=== PATIENT | male | born 1955 | race Caucasian/White ===

== ENCOUNTER 2016-07-02 18:07 | Emergency (ER) | payer MEDICARE, OTHER ==
[~2016-07-02] VITALS: Ht 177.8 cm; Wt 118.0 kg
[2016-07-02 18:12] VITALS: Ht 177.8 cm; Wt 118.0 kg
--- OUTSIDE RECORDS SUMMARY | 2016-07-02 18:12 | XMS REPORT | Referral Summary ---
Author Author [facility] Organization [facility] Address Unknown Phone Unavailable Care Team Providers Care Outdoor Pursuits Instructor Name Role Phone Chandni Chappell Primary Care Physician [phone] Encounter VC Date(s): 04/05/16 - 04/05/16 [facility] [address] [place], [place] [address] Discharge Disposition: 01-Home or Self Care Attending Physician: Jarrod Barlow MD Admitting Physician: Jarrod Barlow MD Vital Signs No data available for this section Problem List Condition Effective Dates Status Health Status Informant Disease of the Active thyroid(Confirmed) H/O Active hypercholesterolemia (Confirmed) Migraine(Confirmed) Active Allergies, Adverse Reactions, Alerts Substance Reaction Severity Status HYDROcodone uNspecfied Active Medications acetaminophen 0 Refill(s) Start Date: 04/05/16 Status: Ordered CeleBREX 200 mg oral capsule 200 mg 1 caps, Oral, BID, # 60 caps, 0 Refill(s) Start Date: 04/05/16 Status: Ordered cyclobenzaprine 10 mg oral tablet 10 mg 1 tabs, Oral, TID, as needed for spasm, # 30 tabs, 0 Refill(s) Start Date: 04/05/16 Status: Ordered Cymbalta 30 mg oral delayed release capsule mg caps, Oral, BID, 0 Refill(s) Start Date: 04/05/16 Status: Ordered Fioricet Oral, q4hr, Migraine Headache, 0 Refill(s) Start Date: 04/05/16 Status: Ordered Fish Oil Oral, 0 Refill(s) Start Date: 04/05/16 Status: Ordered Flonase 50 mcg/inh nasal spray sprays, Nasal, Daily, 0 Refill(s) Start Date: 04/05/16 Status: Ordered levothyroxine 50 mcg (0.05 mg) oral tablet mcg tabs, Oral, Daily, 0 Refill(s) Start Date: 04/05/16 Status: Ordered loratadine 10 mg oral capsule 10 mg 1 caps, Oral, Daily, # 10 caps, 0 Refill(s) Start Date: 04/05/16 Status: Ordered Lyrica 100 mg oral capsule 100 mg 1 caps, Oral, BID, 0 Refill(s) Start Date: 04/05/16 Status: Ordered Metamucil Oral, 0 Refill(s) Start Date: 04/05/16 Status: Ordered multivitamin Daily, 0 Refill(s) Start Date: 04/05/16 Status: Ordered pantoprazole 40 mg oral delayed release tablet mg tabs, Oral, Daily, 0 Refill(s) Start Date: 04/05/16 Status: Ordered Patanol drops, Eye-Both, BID, 0 Refill(s) Start Date: 04/05/16 Status: Ordered Percocet 10/325 oral tablet tabs, Oral, q6hr, as needed for pain, 0 Refill(s) Start Date: 04/05/16 Status: Ordered pravastatin 20 mg oral tablet 20 mg 1 tabs, Oral, Daily, # 30 tabs, 0 Refill(s) Start Date: 04/05/16 Status: Ordered ranitidine 0 Refill(s) Start Date: 04/05/16 Status: Ordered Results No data available for this section Immunizations No data available for this section Procedures Procedure Date Related Diagnosis Body Site Cervical spine surgery Lumbar spine, Arthrodesis Prostate, green light laser Spinal cord stimulator Vasectomy Social History Social History Type Response Smoking Status Never smoker Assessment and Plan Extracted from: Title: Office Visit Note Author: Jarrod Barlow MD Date: 04/05/16 Assessment/Plan Carpal tunnel syndrome, left Patient has bilateral carpal tunnel syndrome by clinical examination and nerve conduction test. This is severe and nerve conduction tests. I don't see any signs of thenar atrophy muscle wasting. I recommended an endoscopic carpal tunnel release performed on the left side. On the right side I recommended an injection with Kenalog to be done at the same setting. The right side is less severe than the left. I explained to the patient that injection of the carpal tunnel on the right will be temporary and he will likely need a carpal tunnel release at some point. The endoscopic carpal tunnel release performed on the left side carries with it a risks of bleeding, infection, damage to nerves or tendons, poor wound healing, need for further surgery. I explained to the patient that this releasewill be done under regional anesthesia. We'll get the patient scheduled for the near future. Ordered: XR Wrist Complete Left
--- OUTSIDE RECORDS SUMMARY | 2016-07-02 18:12 | XMS REPORT | Continuity of Care Document ---
Author Author [facility] Organization [facility] Address Unknown Phone Unavailable Allergies Active Description Code Type Severity Reaction Onset Reported/Identified Relationship to Patient Clinical Status Yes LORATAB N/A N/A Yes LORTAB 04750 2 HICCUPS ITCHING 06/10/2011 Medications Medication Packaging Start Date Stop Date Route Dosage Sig OXYcodone/ACETAMINOPHEN 10-325 MG TABLET TAB 04/16/20152015 PO ONCE LACTATED RINGERS 1000 ML IV SOLN BAG 06/16/2015 06/16/2015 IV PRE-OP MIDAZOLAM 2MG/2ML INJ VL 06/16/2015 06/16/2015 IV PRE-OP fentaNYL 100 MCG/2ML INJ AMP 06/16/2015 06/16/2015 IV PRE-OP ceFAZolin 1GM VIAL VL 06/16/2015 06/16/2015 IV PRE-OP PNEUMOCOCCAL VACCINE 25 MCG/0.5ML VIAL VL 06/16/20152016 IM ASDIR *PRAVASTATIN 20MG TABLET TAB 06/16/2015 06/15/2016 PO QD&2200 * Ready to Reconcile EA 06/16/2015 06/16/2015 PO ASDIR fentaNYL 250 MCG/5ML INJ AMP 06/16/2015 06/16/2015 IV ONCE SODIUM CHLORIDE PF 0.9% 10ML INJ VL 06/16/2015 06/16/2015 IVP ONCE LACTATED RINGERS 1000 ML IV SOLN BAG 06/16/2015 06/16/2015 IV ONCE THROMBIN 5000 UNIT VIAL VL 06/16/2015 06/16/2015 TOP ONCE SODIUM CHLORIDE 0.9% 1000ML IRRIG SOLN EA 06/16/20152015 IRR ONCE ceFAZolin 1GM VIAL VL 06/16/2015 06/16/2015 IVP ONCE SODIUM CHLORIDE 0.9% 10ML FLUSH SYRINGE SYR 06/16/20152016 IVP BID&0900,2100 DOCUSATE SODIUM 100MG CAPSULE CAP 06/16/2015 06/15/2016 PO BID& 0900,2100 LIDOCAINE 2% SYRINGE [100MG/5ML] SYR 06/16/2015 06/16/2015 IVP ONCE PROPOFOL 200MG/20ML INJ VL 06/16/2015 06/16/2015 IVP ONCE ONDANSETRON 4MG/2ML INJ VL 06/16/2015 06/16/2015 IVP ONCE ROCURONIUM 50MG/5ML INJ VL 06/16/2015 06/16/2015 IVP ONCE DEXAMETHASONE 10MG/1ML VIAL VL 06/16/2015 06/16/2015 IVP ONCE SODIUM CHLORIDE 0.9% 10ML FLUSH SYRINGE SYR 06/16/20152016 IVP PRN SODIUM CHLORIDE 0.9% 5ML FLUSH SYRINGE SYR 06/16/20152016 IVP PRN MAGNESIUM HYDROXIDE 2400MG/30ML SUSP EA 06/16/2015 06/15/2016 PO PRN MORPHINE 2 MG/1ML SYRINGE ML 06/16/2015 06/15/2016 IVP [id number] MORPHINE 4MG/1ML SYRINGE ML 06/16/2015 06/15/2016 IVP [id number] OXYcodone/ACETAMINOPHEN 7.5-325 MG TABLET TAB 06/16/20152016 PO [id number] BISACODYL 10MG SUPPOS. SUP 06/16/2015 06/15/2016 ME* PRN ONDANSETRON 4MG TABLET TAB 06/16/2015 06/15/2016 PO [id number] METOCLOPRAMIDE 10MG TABLET TAB 06/16/2015 06/15/2016 PO [id number] BISACODYL 5MG TABLET TAB 06/16/2015 06/15/2016 PO PRN SODIUM CHLORIDE 0.9% 1000ML IV SOLN BAG 06/16/2015 06/16/2015 LVP 70ML/HR ONDANSETRON 4MG/2ML INJ VL 06/16/2015 06/15/2016 IVP [id number] METOCLOPRAMIDE 10MG/2ML INJ VL 06/16/2015 06/15/2016 IVP [id number] CYCLOBENZAPRINE 10 MG TABLET TAB 06/16/2015 06/15/2016 PO O5PDYLE *OLOPATADINE OPHTHALMIC DROPS 06/16/2015 06/15/2016 OU PRN *PREGABALIN 100 MG CAPSULE CAP 06/16/2015 06/15/2016 PO BID& 0900,2100 *DULoxetine 30MG CAPSULE CAP 06/16/2015 06/15/2016 PO HS&2200 *[id number] 50-325-40 MG TABLET TAB 06/16/2015 PO Q4HPRN *RANITIDINE 150MG TABLET TAB 06/16/2015 06/15/2016 PO QD&0900 *PRAVASTATIN 20MG TABLET TAB 06/16/2015 06/15/2016 PO QD&2200 *PANTOPRAZOLE 40MG TABLET TAB 06/16/2015 06/15/2016 PO QD&0900 *LORATADINE 10MG TABLET TAB 06/16/2015 06/15/2016 PO QDPRN *LEVOTHYROXINE 50MCG TABLET TAB 06/16/2015 06/15/2016 PO QD& 0900 *POLYVINYL ALCOHOL 1.4 % OPHTHALMIC DROPS EA 06/16/20152016 OP PRN *FLUTICASONE NASAL INHALER [16GM] MDI 06/16/2015 06/15/2016 LISA PRN hydroMORPHONE 2MG/1ML INJ ML 06/16/2015 06/16/2015 IV POST-OP ceFAZolin 1GM VIAL VL 06/16/2015 06/17/2015 IVP Q8H&1700,0100, 0900 ceFAZolin 1GM VIAL VL 06/16/2015 06/16/2015 IVP Q8H&0000,0800, 1600 POLYETHYLENE GLYCOL 17GM PKT PKT 06/17/2015 06/16/2016 PO QD& 0900 *OMEGA-3 FATTY ACIDS 1000MG CAPSULE CAP 07/09/2015 07/08/2016 PO BID&0900,2100 *PREGABALIN 100 MG CAPSULE CAP 07/09/2015 06/16/2015 PO BID& 0900,2100 *CELECOXIB 200MG CAPSULE CAP 07/09/2015 07/08/2016 PO BID&0900, 2100 *MULTIVITAMIN TABLET TAB 07/09/2015 07/08/2016 PO QD&0900 *RANITIDINE 150MG TABLET TAB 07/09/2015 06/16/2015 PO QD&0900 *PRAVASTATIN 20MG TABLET TAB 07/09/2015 06/16/2015 PO QD&0900 *PANTOPRAZOLE 40MG TABLET TAB 07/09/2015 06/16/2015 PO QD&0900 *LORATADINE 10MG TABLET TAB 07/09/2015 06/16/2015 PO QD&0900 *LEVOTHYROXINE 50MCG TABLET TAB 07/09/2015 06/16/2015 PO QD& 0900 *OXYcodone/ACETAMINOPHEN 5-325 MG TABLET TAB 07/09/20152016 PO Q4-6HPRNP *DULoxetine 30MG CAPSULE CAP 07/09/2015 06/16/2015 PO HS&2200 *FLUTICASONE NASAL INHALER [16GM] MDI 07/09/2015 06/16/2015 LISA PRN *[id number] 50-325-40 MG TABLET TAB 07/09/2015 PO Q4HPRN *LORATADINE 10MG TABLET TAB 07/09/2015 06/16/2015 PO QDPRN *OTC/HERBAL SUPPLEMENTS EA 07/09/2015 07/08/2016 PO ASDIR * DONT RECONCILE--CHANGE PENDING EA 07/09/2015 06/16/2015 PO PRN *DOCUSATE SODIUM 100MG CAPSULE CAP 07/09/2015 07/08/2016 PO PRN *CYCLOBENZAPRINE 10 MG TABLET TAB 07/09/2015 07/08/2016 PO Q8HPRN *ACETAMINOPHEN 500MG TABLET TAB 07/09/2015 07/08/2016 PO HS& 2200 *OLOPATADINE OPHTHALMIC DROPS 07/09/2015 06/16/2015 OU PRN *PRAVASTATIN 20MG TABLET TAB 07/16/2015 06/16/2015 PO QD&2200 *POLYVINYL ALCOHOL 1.4 % OPHTHALMIC DROPS EA 07/16/20152015 OP PRN Problems Date Dx Coded Attending Type Code Diagnosis Diagnosed By 06/17/2011 DF 244.9 HYPOTHYROIDISM NOS 06/17/2011 DF 272.0 PURE HYPERCHOLESTEROLEM 06/17/2011 DF 285.9 ANEMIA NOS 06/17/2011 DF 327.23 OBSTRUCTIVE SLEEP APNEA 06/17/2011 DF 349.31 ACCID PUNC/OP LAC DURA 06/17/2011 DF 401.9 HYPERTENSION NOS 06/17/2011 DF 530.81 ESOPHAGEAL REFLUX 06/17/2011 DF 721.3 LUMBOSACRAL SPONDYLOSIS 06/17/2011 DF 722.10 LUMBAR DISC DISPLACEMENT 06/17/2011 DF 722.52 LUMB/LUMBOSAC DISC DEGEN 06/17/2011 DF V85.35 BMI 35.0-35.9,ADULT 04/16/2015 ASIF ARANDA DF M54.2 Cervicalgia 04/16/2015 ASIF ARANDA DF M54.5 Low back pain 04/16/2015 ASIF ARANDA DF M54.6 Pain in thoracic spine 06/17/2015 ASIF ARANDA DF E03.9 Hypothyroidism, unspecified 06/17/2015 ASIF ARANDA DF E78.5 Hyperlipidemia, unspecified 06/17/2015 ASIF ARANDA DF G43.909 Migraine, unspecified, not intractable, 06/17/2015 ASIF ARANDA DF G47.33 Obstructive sleep apnea (adult) (pediatr 06/17/2015 ASIF ARANDA DF J30.2 Other seasonal allergic rhinitis 06/17/2015 ASIF ARANDA DF K21.9 Gastro-esophageal reflux disease without 06/17/2015 ASIF ARANDA DF M25.78 Osteophyte, vertebrae 06/17/2015 ASIF ARANDA DF M47.892 Other spondylosis, cervical region 06/17/2015 ASIF ARANDA DF M48.02 Spinal stenosis, cervical region 06/17/2015 ASIF ARANDA DF M50.12 Cervical disc disorder with radiculopath 06/17/2015 ASIF ARANDA DF M50.22 Other cervical disc displacement, mid-ce 08/01/2015 ASIF ARANDA DF M48.02 Spinal stenosis, cervical region 08/01/2015 ASIF ARANDA DF Z98.1 Arthrodesis status Procedures Code Description Performed By Performed On SPINAL STRUCT REPAIR NEC ASIF ARANDA 06/14/2011 77.79 EXCISE BONE FOR GFT NEC ASIF ARANDA 06/14/2011 81.07 LMB/LMBSAC FUS POST/POST ASIF ARANDA 06/14/2011 81.62 FUS/REFUS 2-3 VERTEBRAE ASIF ARANDA 06/14/2011 [id number] Computerized Tomography (CT Scan) of Spi 04/16/2015 [id number] Excision of Cervical Vertebral Joint, Op ASIF ARANDA 06/16/2015 [id number] Excision of Cervical Vertebral Disc, Ope ASIF ARANDA 06/16/2015 [id number] Fusion of Cervical Vertebral Joint with YULISA ARANDAMOND 06/16/2015 Results Encounters ACCT No. Visit Date/Time Discharge Status Pt. Type Provider Facility Loc./Unit Complaint [id number] 08/01/2015 12:14:00 08/01/2015 12: 14:[address] [facility] RADS [id number] 06/16/2015 07:05:00 06/17/2015 13: 25:00 DIS 01 [facility] INPT NO KNOWN INJURY,stenosis. [id number] 04/16/2015 09:19:00 04/16/2015 15: 21:00 DIS 26 [facility] INPT [id number] 06/14/2011 08:30:00 Document Registration
--- OUTSIDE RECORDS SUMMARY | 2016-07-02 18:12 | XMS REPORT | Continuity of Care Document ---
Author Author [facility] Organization [facility] Address Unknown Phone Unavailable Care Team Providers Care Artist Scientific Name Role Phone Benigno Chappell Primary Care Physician [phone] Source Comments Some departments are not documenting in the electronic medical record. If you do not see the information that you expected, contact Release of Information in the Health Information Management department at [phone] for further assistance in locating additional records.[facility] Active Allergies and Adverse Reactions Allergen Noted Date Severity Reactions Comments Hydrocodone-Acetaminophen 04/16/2008 ITCHING, SEE COMMENTS "causes hiccups" Current Medications Prescription Sig. Disp. Refills Start End Date Status Date ASPIRIN 81 mg Tab Take 1 Tab by mouth Active Daily. LORATADINE 10 mg tablet Take 1 Tab by mouth Active Daily. (CLARITIN) FLUTICASONE 50 Insert 2 Sprays into nose Active mcg/Actuation nasal spray as directed Twice Daily. (FLONASE) OMEPRAZOLE DR,+, 20 mg Take 1 Cap by mouth Twice Active capsule Daily. (PRILOSEC) LOVASTATIN,+, 40 mg Take 1 Tab by mouth At Active tablet Bedtime Daily. (MEVACOR) VITAMINS, MULTIPLE Cap Take 1 Cap by mouth Active Daily. TRAMADOL,+, 50 mg tablet Take 2 Tabs by mouth Active Three Times Daily. (ULTRAM) DOCUSATE 100 mg capsule Take 1 Cap by mouth At Active Bedtime Daily. (hold for loose stools). (COLACE) LUBIPROSTONE 24 mcg Cap Take 1 Cap by mouth Active Daily. (Amitiza) TRAZODONE 50 mg tablet Take 1 Tab by mouth At Active Bedtime Daily. (DESYREL) DULOXETINE DR 30 mg Take 1 Cap by mouth Active capsule Daily. (Cymbalta). CITRUCEL Powd Take 1 Tbsp by mouth Active Twice Daily. docusate (COLACE) 100 mg Take 1 Cap by mouth Twice 60 0 04/20/19 Active capsule Daily as needed for 09 Constipation. oxycodone/acetaminophen Take 1-2 Tabs by mouth 100 0 04/20/19 Active (PERCOCET) 5/325 mg Every 3-4 Hours as needed 09 tablet for Pain. 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
--- NOTE | 2016-07-02 18:18 | NUR ---
DR DR CASTELLANO AT BEDSIDE.
--- NOTE | 2016-07-02 18:24 | NUR ---
XRAY PORTABLE XRAY AT BEDSIDE.
--- NOTE | 2016-07-02 18:24 | ERPDOC ---
Departure Disposition Decision Date: July 02, 2016 Disposition Decision Time: 19:14 Disposition: 01 DISCHARGED HOME, SELF-CARE Impression Impression Impression: Primary Impression: Finger laceration Encounter type: initial encounter Qualified Codes: S61.219A - Laceration without foreign body of unspecified finger without damage to nail, initial encounter Additional Impression: Finger avulsion Encounter type: initial encounter Qualified Codes: S61.209A - Unspecified open wound of unspecified finger without damage to nail, initial encounter Severity: Moderate Condition: Improved Seen By: Physician only Referrals: MARIANA MACKEY MD (Family) MARIELA LAZO MD Patient Instructions: Finger Laceration (ED) Problems/Meds/Labs Reviewed?: Yes Medications reviewed and manag: Yes Additional Instructions: Keep dressing in place, clean, and dry for 24 hours, thereafter wash wound daily with mild soap and water, coat with a light coat of Vaseline and dry gauze dressing daily until healed. See Dr. Lazo in his office Tuesday at 10 AM Follow up care ordered?: Yes Mental Status: Alert HPI General Chief Complaint: Laceration Stated Complaint: FINGER LACERATION Time Seen by Provider: 18:13 Source: patient, family Exam Limitations: no limitations HPI Hand/Forearm Initial Comments Pt cut the tip of his right index finger longitudinally with a table saw one hour ago. Treated at home with triple antibiotic cream and wrapped. Occurred At: home Onset: Rapid Duration: 1 hr Location: right: 2nd finger 1 - Longitudinal laceration through the tip of the finger Method of Injury: incised Associated Symptoms: pain with extension, pain with flexion, DENIES: bruising, pain with grasp, pallor, red streaks, redness, swelling, weakness Allergies: Coded Allergies: acetaminophen (Verified Adverse Reaction, Unknown, ITCHY, HICCUPS, 07/02/16) hydrocodone (Verified Adverse Reaction, Unknown, ITCHY, HICCUPS, 07/02/16) oxycodone (Verified Adverse Reaction, Unknown, ITCHY, HICCUPS, 07/02/16) Past History Patient Medical History Problem List Updates: y Past Medical History Metabolic: hypercholesterolemia, hypothyroidism ENMT: allergies GI: GERD Neurological: migraines Musculoskeletal: back pain Social History Tobacco Usage: none Alcohol Usage: none Drug Usage: none Record Review Pertinent history updated: Yes Review of Systems Constitutional Constitutional: DENIES: appetite decrease, appetite increase, chills, dizziness , fever, weakness ENMT Ears: DENIES: pain Hearing: DENIES: hearing loss, tinnitus Balance: DENIES: vertigo Mouth/Throat: DENIES: change in swallowing, change in voice, hoarsness, painful swallowing, sore throat Cardiovascular Cardiac: DENIES: chest pain, dyspnea on exertion Rhythm/Rate: DENIES: irregular beat, palpitations, tachycardia Vascular: DENIES: pedal edema Pulmonary Respiratory: DENIES: cough, dyspnea, pleuritic chest pain GI Upper Abdomen: DENIES: dysphagia, heartburn/indigestion, nausea, pain, vomiting Lower Abdomen: DENIES: blood in stool, constipation, diarrhea, pain General: DENIES: burning, dysuria, frequency, pain, urgency Musculoskeletal General: DENIES: cramps, joint pain, joint swelling, pain, weakness Integumentary Skin: DENIES: rash, sores Neurological General: DENIES: headache, numbness, tingling, vertigo, weakness Psychiatric Psychiatric: DENIES: anxiety, depression, nervousness Exam General General Nourishment: well nourished, well developed, appears stated age, no acute distress General Body Habitus: well groomed Vital Signs: RN Vital Signs have been reviewed: Yes Fastrak Hand/Forearm Comments Longitudinal linear finger laceration with tissue avulsion as diagrammed. Through and through with moderate loss of central/medial tissue of the second digit, distal phalanx. Moderate bleeding, controlled with pressure dressing Patient is neurovascularly intact with good capillary refill, good sensation throughout the finger. Neurologic RN Documented GCS Eye Opening: Verbal: Motor: Total: Procedures Procedures Performed Procedures Performed: Laceration Repair Laceration/Wound Repair Wound/Laceration Repair : Wound Location: upper extremity Wound Length (cm): 4 Depth, Shape: subcutaneous, muscle, tissue avulsed Explored: contaminated Irrigated: saline Prep: hibiclens Anesthesia: 0.5% Bupivicaine Volume Anesthetic (ccs): 3 Type of Block: digital Wound Debrided: minimal Wound Revision?: No Repaired With: Sutures Suture Size: 4:0 Suture Type: prolene Number of Sutures: 7 Progress Results/Orders Orders Procedure Category Date Status Time Tetanus,Diphth,A PHA 07/02/16 Complete Pertus (Tdap) (Adacel) 18:30 Bupivacaine 0.5% PHA 07/02/16 Complete (Marcaine 0.5%) 18:30 Fingers Right 2 View RAD 07/02/16 Taken MIN Medications Current ED Medications Diphtheria/ Tetanus/Acell Pertussis (Adacel) 0.5 ml O ONCE IM ; Start 07/02/16 at 18:30; Stop 07/02/16 at 18:31; Status DC Bupivacaine HCl (Marcaine 0.5%) 150 mg O ONCE INFIL Last administered on t 18:20; Start 07/02/16 at 18:30; Stop 07/02/16 at 18:31; Status DC Progress Progress X-ray the fingertip shows partial avulsion of the medial aspect of the distal phalanx, consistent with the avulsion/forefinger laceration Discussed with Dr. Lazo - we will go ahead and aggressively clean and debride the area, and closed primarily using Prolene sutures tonight. Dr. Lazo will see the patient in follow up Tuesday at 10 AM in the clinic. Patient is currently on Cipro and Keflex for full course, status post state biopsy yesterday. CHRIS CASTELLANO MD July 02, 2016 18:24
--- OUTSIDE RECORDS SUMMARY | 2016-07-02 18:26 | XMS REPORT | Continuity of Care Document ---
Author Author [facility] Organization [facility] Address Unknown Phone Unavailable Care Team Providers Care Engraver Machine Name Role Phone Benigno Chappell Primary Care Physician [phone] Source Comments Some departments are not documenting in the electronic medical record. 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
--- OUTSIDE RECORDS SUMMARY | 2016-07-02 18:27 | XMS REPORT | Continuity of Care Document ---
Author Author [facility] Organization [facility] Address Unknown Phone Unavailable Allergies Active Description Code Type Severity Reaction Onset Reported/Identified Relationship to Patient Clinical Status Yes LORATAB N/A N/A Yes LORTAB 87420 2 HICCUPS ITCHING 06/10/2011 Medications Medication Packaging [...] 2 MG/1ML SYRINGE ML 06/16/2015 06/15/2016 IVP [id number] MORPHINE 4MG/1ML SYRINGE ML 06/16/2015 06/15/2016 IVP [id number] OXYcodone/ACETAMINOPHEN 7.5-325 MG TABLET TAB 06/16/20152016 PO Q4XWNGC BISACODYL 10MG SUPPOS. SUP 06/16/2015 06/15/2016 NM* PRN ONDANSETRON 4MG TABLET TAB 06/16/2015 06/15/2016 PO T1ANKVAM METOCLOPRAMIDE 10MG TABLET TAB 06/16/2015 06/15/2016 PO [id number] BISACODYL 5MG TABLET TAB 06/16/2015 06/15/2016 PO PRN SODIUM CHLORIDE 0.9% 1000ML IV SOLN BAG 06/16/2015 06/16/2015 LVP 70ML/HR ONDANSETRON 4MG/2ML INJ VL 06/16/2015 06/15/2016 IVP [id number] METOCLOPRAMIDE 10MG/2ML INJ VL 06/16/2015 06/15/2016 IVP [id number] CYCLOBENZAPRINE 10 MG TABLET TAB 06/16/2015 06/15/2016 PO H0MUAHY *OLOPATADINE OPHTHALMIC DROPS 06/16/2015 06/15/2016 OU PRN *PREGABALIN 100 MG CAPSULE CAP 06/16/2015 06/15/2016 PO BID& 0900,2100 *DULoxetine 30MG CAPSULE CAP 06/16/2015 06/15/2016 PO HS&2200 *[id number] 50-325-40 MG TABLET TAB 06/16/2015 PO Q4HPRN [...] INHALER [16GM] MDI 07/09/2015 06/16/2015 LISA PRN *[id number] 50-325-40 MG TABLET TAB 07/09/2015 PO Q4HPRN [...] DF M48.02 Spinal stenosis, cervical region 06/17/2015 AISF ARANDA DF M50.12 Cervical disc disorder with [...] 81.62 FUS/REFUS 2-3 VERTEBRAE ASIF ARANDA 06/14/2011 [id number] Computerized Tomography (CT Scan) of Spi 04/16/2015 [id number] Excision of Cervical Vertebral Joint, Op ASIF ARANDA 06/16/2015 [id number] Excision of Cervical Vertebral Disc, Ope ASIF ARANDA 06/16/2015 [id number] Fusion of Cervical Vertebral Joint with YULISA ARANDAMOND 06/16/2015 Results Encounters ACCT No. Visit Date/Time Discharge Status Pt. Type Provider Facility Loc./Unit Complaint [id number] 08/01/2015 12:14:00 08/01/2015 12: 14:00 DIS Outpatient [facility] RADS [id number] 06/16/2015 07:05:00 06/17/2015 13: 25:00 DIS 01 [facility] INPT NO KNOWN INJURY,stenosis. [id number] 04/16/2015 09:19:00 04/16/2015 15: 21:00 DIS 26 [facility] INPT [id number] 06/14/2011 08:30:00 Document Registration
[2016-07-02] MEDS ORDERED: TETANUS,DIPHTH,a PERTUS (Tdap) 0.5 ML VIAL IM ONE (18:30)
[2016-07-02] MEDS ORDERED: BUPIVACAINE 0.5% (5mg/ml) 30ml INJ SDV INFIL ONE (18:30)
--- NOTE | 2016-07-02 18:33 | NUR ---
REPORT GIVEN TO TYRESE MCGINNIS. CARE ASSUMED.
[2016-07-02] MEDS ORDERED: PANT40TA27 PO (18:45)
[2016-07-02] MEDS ORDERED: MULT-933 PO (18:45)
[2016-07-02] MEDS ORDERED: CELE200C PO (18:45)
[2016-07-02] MEDS ORDERED: LEVO50TA11 PO (18:45)
--- NOTE | 2016-07-02 18:54 | NUR ---
PROVIDER DR. CASTELLANO AT BEDSIDE FOR SUTURE.
[2016-07-02] MEDS ORDERED: PSYL660P17 PO (19:21)
[2016-07-02] MEDS ORDERED: ACET-2723 PO (19:21)
[2016-07-02] MEDS ORDERED: OMEG1CAP52 PO (19:21)
[2016-07-02] MEDS ORDERED: FLUT9.9S EA NOSTRIL (19:21)
[2016-07-02] MEDS ORDERED: [UNRECOGNIZED DRUG - CODE] (19:21)
[2016-07-02] MEDS ORDERED: RANI150T7 PO (19:21)
[2016-07-02] MEDS ORDERED: DULO30CA2 PO (19:21)
[2016-07-02] MEDS ORDERED: OLOP5DRO BOTH EYES (19:21)
[2016-07-02] MEDS ORDERED: PREG100C PO (19:21)
[2016-07-02] MEDS ORDERED: METH2TAB (19:21)
[2016-07-02] MEDS ORDERED: PRAV20TA4 PO (19:21)
[2016-07-02] MEDS ORDERED: LORA10TA62 PO (19:21)
[2016-07-02] MEDS ORDERED: CYCL-375 PO (19:21)
[2016-07-02] MEDS ORDERED: BUTA1CAP53 PO (19:21)
[2016-07-02] MEDS ORDERED: HYDROCODONE/APAP 5/325 (PrePack) SENT HOME ONE (19:30)
[2016-07-02] MEDS ORDERED: NEOMYCIN/POLYM/BACITR OINT PACKET TOP ONE (19:30)
[2016-07-02 19:36] VITALS: BP 135/85; PULSE 78; RESP 16; TEMP 98.6; O2SAT 97
--- NOTE | 2016-07-02 19:36 | NUR ---
DISCHARGE WRITTEN INSTRUCTIONS WITH SHELLY PREPACK REVIEWED AND SENT WITH PT. PT VERBALIZES UNDERSTANDING OF DI AND MEDICATION, DENIES QUESTIONS. DENIES PAIN ON DISMISSAL. PT AMBULATES OUT OF ER WITH STEADY GAIT ACCOMP BY SPOUSE AT THIS TIME.
--- NOTE | 2016-07-04 09:45 | DI ---
Indication: ITS.REASON: longitudinal finger tip saw injury PROCEDURE: FINGERS RIGHT 2 VIEW MIN: Encounter: Initial Comparison: None Findings: Comminuted open fracture of the index finger distal phalanx predominantly involving the left. No additional acute fracture or dislocation seen. Fracture does not extend into the joint space. Impression: Open posttraumatic fracture of the index finger distal phalanx. .
== END 2016-07-02 19:36 | disposition home or self-care (01) ==
LOC: ED 18:07
DX: S61.210A Laceration without foreign body of right index finger without damage to nail, initial encounter (principal); W29.8XXA Contact with other powered hand tools and household machinery, initial encounter; Y93.89 Activity, other specified; Y92.009 Unspecified place in unspecified non-institutional (private) residence as the place of occurrence of the external cause; Y99.8 Other external cause status
CPT/HCPCS: 12002; 73140; 90471; 90715; 99283; A9270

== ENCOUNTER 2016-07-17 15:58 | Observation (INO) | payer MEDICARE, OTHER ==
[~2016-07-17] VITALS: Ht 175.3 cm; Wt 118.0 kg
[~2016-07-17 15:58] MED LIST: ACET-2723 PO; BUTA1CAP53 PO; CELE200C PO; CYCL-375 PO; DULO30CA2 PO; FLUT9.9S EA NOSTRIL; LEVO50TA11 PO; LORA10TA62 PO; METH2TAB; MULT-933 PO; OLOP5DRO BOTH EYES; OMEG1CAP52 PO; PANT40TA27 PO; PRAV20TA4 PO; PREG100C PO; PSYL660P17 PO; RANI150T7 PO; [UNRECOGNIZED DRUG - CODE] PO
--- OUTSIDE RECORDS SUMMARY | 2016-07-17 16:03 | XMS REPORT | Continuity of Care Document ---
Author Author [facility] Organization [facility] Address Unknown Phone Unavailable Care Team Providers Care Patient Ombudsperson Name Role Phone Benigno Chappell Primary Care Physician [phone] Source Comments Some departments are not documenting in the electronic medical record. If you do not see the information that you expected, contact Release of Information in the Health Information Management department at [phone] for further assistance in locating additional records.[facility] Active Allergies and Adverse Reactions [...] Taken Blood Pressure 119/80 04/20/2008 10:30 AM TELEVISION NEWS REPORTER Pulse 110 04/20/2008 10:30 AM TELEVISION NEWS REPORTER Temperature 36.3 C (97.3 F) 04/20/2008 10:30 AM TELEVISION NEWS REPORTER Respiratory Rate - - Height - - Weight 100 kg (220 lb 7.4 oz) 04/17/2008 1:44 PM TELEVISION NEWS REPORTER Body Mass Index - - Oxygen Saturation 100% 04/20/2008 10:30 AM TELEVISION NEWS REPORTER Plan of Care Health Maintenance Due Date Last Done Comments Hepatitis C Screening 1955 Physical (Comprehensive) 1960 Exam Pertussis Vaccine 1964 Tetanus Vaccine 1970 Colorectal Cancer 07/16/2003 Screening Shingles Vaccine 2013 Influenza Vaccine 10/29/2016 Results from Last 3 Months Not on file
--- OUTSIDE RECORDS SUMMARY | 2016-07-17 16:04 | XMS REPORT | Continuity of Care Document ---
Author Author [facility] Organization [facility] Address Unknown Phone Unavailable Support Name Relationship Address Phone CHRIS CASTELLANO MD Caregiver [address] [address] Unavailable MARIANA MACKEY MD Caregiver [address] [place] [address] Unavailable BLAKE ANAND Next Of Kin [address] [place] [address] Insurance Providers Guarantor Harjinder Anand Address [address] [place] [address] Email [email or web address] Payer [place] Policy Number [id number] Subscriber's Name Harjinder Anand Relationship 18 Self Group Number [employer] [facility] Payer Medicare Policy Number [id number] Subscriber's Name Harjinder Anand Relationship 18 Self Advance Directives Directive Response Recorded Date/Time Advanced Directives Type None 07/02/16 6:12pm Chief Complaint and Reason for Visit Chief Complaint Laceration Reason for Visit [id number] Problems Active Problems Medical Problem Onset Date Status Finger avulsion Unknown Acute Finger laceration Unknown Acute Medications Current Home Medications Medication Dose Units Route Directions Days Qty Instructions Start Date Acetaminophen (Tylenol Extra Strength) 500 Mg Tablet 2 Tab Oral Three Times A Day as needed for Pain/Fever 07/02/16 Butalb/Acetaminophen/Caffeine (Fioricet 50-300-40 Mg Capsule) 1 Each Capsule 1 Tab Oral As Needed 07/02/16 Celecoxib (Celebrex) 200 Mg Capsule 1 Cap Oral Daily 07/02/16 Cyclobenzaprine Hcl 10 Mg Tablet 1 Tab Oral Three Times A Day as needed for Prn Orders 07/02/16 Duloxetine Hcl (Cymbalta) 30 Mg Capsule 1 Cap Oral Daily 07/02/16 Fluticasone Propionate (Flonase Allergy Relief 50 Mcg/Actuation Nasal) 9.9 Ml [place].susp 2 [place] Each Nostril As Needed 07/02/16 Glucosam/Msm/Chondroit/Vit D3 (Sv Glucosamine Chondroitin Tab) 1 Each Tablet 1 07/02/16 Levothyroxine Sodium 50 Mcg Tablet 50 Mcg Oral Before Breakfast Once daily before breakfast. 07/02/16 Loratadine (Claritin) 10 Mg Tablet 1 Tab Oral Daily 07/02/16 Methylprednisolone (Medrol) 2 Mg Tablet 07/02/16 Multivitamin (Multi-Day Vitamins) 1 Each Tablet 1 Tab Oral Daily 30 Tablet 07/02/16 Olopatadine Hcl (Patanol) 50 Drop/5 Ml Drops 2 Drop Both Eyes As Needed 07/02/16 [place]-3S/Dha/Epa/Fish Oil (Fish Oil Ec 1,200 Mg Softgel) 1 Each Capsule.dr 1 Tab Oral Twice A Day 07/02/16 Pantoprazole Sodium 40 Mg Tablet.dr 40 Mg Oral Before Breakfast Take 1 tablet, by mouth, daily before breakfast. 07/02/16 Pravastatin Sodium 20 Mg Tablet 20 Mg Oral Bedtime Take 1 tablet, by mouth, daily at bedtime. 07/02/16 Pregabalin (Lyrica) 100 Mg Capsule 100 Mg Oral Bedtime 07/02/16 Psyllium Husk (Metamucil) 660 Gm Powder 660 Gm Oral Twice A Day 07/02/16 Ranitidine Hcl 150 Mg Tablet 150 Mg Oral Bedtime Take 1 tablet, by mouth, 1 time a day (at BEDTIME). 07/02/16 Social History Social History Problem Response Recorded Date/Time Onset Date Status Chewing Tobacco Status No 07/02/2016 6:27pm Not Applicable Not Applicable Hx Substance Use No 07/02/2016 6:27pm Not Applicable Not Applicable Hx Alcohol Use No 07/02/2016 6:27pm Not Applicable Not Applicable Tobacco Usage none 07/02/2016 6:32pm Not Applicable Not Applicable Query Response Start Date Stop Date Smoking Status Former smoker Hospital Discharge Instructions No hospital discharge instructions. Plan of Care Discharge Date 07/02/16 7:36pm Disposition 01 DISCHARGED HOME, SELF-CARE Condition at Discharge Improved Instructions/Education Provided Finger Laceration (ED) Prescriptions See Medication Section Referrals MARIANA MACKEY MD Address: [address] [place] [address] [place] [phone] Note: MARIELA LAZO MD Address: [address] [phone] Additional Instructions/Education Keep dressing in place, clean, and dry for 24 hours, thereafter wash wound daily with mild soap and water, coat with a light coat of Vaseline and dry gauze dressing daily until healed. See Dr. Lazo in his office Tuesday at 10 AM Care Plan and Goals Physician Care Plan Problem: Finger laceration/avulsion Goal: Follow up with primary care provider Instructions: Take medications and follow care plan as discussed/written Keep dressing in place, clean, and dry for 24 hours, thereafter wash wound daily with mild soap and water, coat with a light coat of Vaseline and dry gauze dressing daily until healed. See Dr. Lazo in his office Tuesday at 10 AM Functional Status No functional status results. Allergies, Adverse Reactions, Alerts Allergen Type Severity Reaction Status Last Updated Hydrocodone Adverse Reaction Unknown ITCHY, HICCUPS Active 07/02/16 Oxycodone Adverse Reaction Unknown ITCHY, HICCUPS Active 07/02/16 Acetaminophen Adverse Reaction Unknown ITCHY, HICCUPS Active 07/02/16 Immunizations Immunization Event Date Type Not Given Reason Dose Number Lot Number Program Director Group Work VIS Given Tdap 07/02/16 Administered 1 [id number] [employer] miniDaT 04/23/14 Query Response on File Recorded Date/Time DTaP Vaccine History UNK 07/02/16 6:27pm Tdap Vaccine Hx 07/02/16 07/02/16 7:30pm Vital Signs Acute Vital Signs Vital Response Date/Time Temperature (Fahrenheit) 98.6 deg F (96.8 - 99.1) 07/02/2016 7:36pm Temperature (Calculated Celsius) 37.16518 degrees C (36.0 - 37.3) 07/02/2016 7:36pm Pulse Rate (adult) 78 bpm (60 - 100) 07/02/2016 7:36pm Respiratory Rate 16 breaths/min (10 - 20) 07/02/2016 7:36pm O2 Sat by Pulse Oximetry 97 % (90 - 100) 07/02/2016 7:36pm Blood Pressure 135/85 mm Hg 07/02/2016 7:36pm Height (Feet) 5 feet 07/02/2016 6:12pm Height (Inches) 10.00 inches 07/02/2016 6:12pm Weight (Kilograms) 118.000 kg 07/02/2016 6:12pm Body Mass Index (BMI) 37.0 07/02/2016 6:12pm Results No known relevant diagnostic tests, laboratory data and/or discharge summary. Procedures No known history of procedures. Encounters Encounter Location Arrival/Admit Date Discharge/Depart Date Attending Provider Registered Emergency Room [facility] 07/02/16 6:07pm CHRIS CASTELLANO MD Recent Diagnosis
--- OUTSIDE RECORDS SUMMARY | 2016-07-17 16:04 | XMS REPORT | Continuity of Care Document ---
Author Author [facility] Organization [facility] Address Unknown Phone Unavailable Allergies Active Description Code Type Severity Reaction Onset Reported/Identified Relationship to Patient Clinical Status Yes LORATAB N/A N/A Yes LORTAB 10005 2 HICCUPS ITCHING 06/10/2011 Medications Medication Packaging [...] 2 MG/1ML SYRINGE ML 06/16/2015 06/15/2016 IVP [id number] MORPHINE 4MG/1ML SYRINGE ML 06/16/2015 06/15/2016 IVP [id number] OXYcodone/ACETAMINOPHEN 7.5-325 MG TABLET TAB 06/16/20152016 PO N5QUYYQ BISACODYL 10MG SUPPOS. SUP 06/16/2015 06/15/2016 DE* PRN ONDANSETRON 4MG TABLET TAB 06/16/2015 06/15/2016 PO [id number] METOCLOPRAMIDE 10MG TABLET TAB 06/16/2015 06/15/2016 PO F4RCEZPY BISACODYL 5MG TABLET TAB 06/16/2015 06/15/2016 PO PRN SODIUM CHLORIDE 0.9% 1000ML IV SOLN BAG 06/16/2015 06/16/2015 LVP 70ML/HR ONDANSETRON 4MG/2ML INJ VL 06/16/2015 06/15/2016 IVP [id number] METOCLOPRAMIDE 10MG/2ML INJ VL 06/16/2015 06/15/2016 IVP [id number] CYCLOBENZAPRINE 10 MG TABLET TAB 06/16/2015 06/15/2016 PO O6HRGMS *OLOPATADINE OPHTHALMIC DROPS 06/16/2015 06/15/2016 OU PRN *PREGABALIN 100 MG CAPSULE CAP 06/16/2015 06/15/2016 PO BID& 0900,2100 *DULoxetine 30MG CAPSULE CAP 06/16/2015 06/15/2016 PO HS&2200 *[id number] 50-325-40 MG TABLET TAB 06/16/2015 PO Q4HPRN [...] INHALER [16GM] MDI 07/09/2015 06/16/2015 LISA PRN *[id number] 50-325-40 MG TABLET TAB 07/09/2015 PO Q4HPRN [...] 81.62 FUS/REFUS 2-3 VERTEBRAE ASIF ARANDA 06/14/2011 [id number] Computerized Tomography (CT Scan) of Spi 04/16/2015 [id number] Excision of Cervical Vertebral Joint, Op ASIF ARANDA 06/16/2015 [id number] Excision of Cervical Vertebral Disc, Ope ASIF ARANDA 06/16/2015 [id number] Fusion of Cervical Vertebral Joint with YULISA ARANDAMOND 06/16/2015 Results Encounters ACCT No. Visit Date/Time Discharge Status Pt. Type Provider Facility Loc./Unit Complaint [id number] 08/01/2015 12:14:00 08/01/2015 12: 14:00 DIS Outpatient [facility] RADS [id number] 06/16/2015 07:05:00 06/17/2015 13: 25:00 DIS 01 [facility] INPT NO KNOWN INJURY,stenosis. [id number] 04/16/2015 09:19:00 04/16/2015 15: 21:00 DIS 26 [facility] INPT [id number] 06/14/2011 08:30:00 Document Registration
--- NOTE | 2016-07-17 16:05 | NUR ---
IV IVL STARTED AND SOME BLOOD COLLECTED FOR LAB
--- OUTSIDE RECORDS SUMMARY | 2016-07-17 16:10 | XMS REPORT | Continuity of Care Document ---
Author Author [facility] Organization [facility] Address Unknown Phone Unavailable Care Team Providers Care Microbiology Professor Name Role Phone Benigno Chappell Primary Care Physician [phone] Source Comments Some departments are not documenting in the electronic medical record. If you do not see the information that you expected, contact Release of Information in the Health Information Management department at [phone] for further assistance in locating additional records.[facility] Active Allergies and Adverse Reactions Allergen [...] Taken Blood Pressure 119/80 04/20/2008 10:30 AM CHUTE GREASER Pulse 110 04/20/2008 10:30 AM CHUTE GREASER Temperature 36.3 C (97.3 F) 04/20/2008 10:30 AM CHUTE GREASER Respiratory Rate - - Height - - Weight 100 kg (220 lb 7.4 oz) 04/17/2008 1:44 PM CHUTE GREASER Body Mass Index - - Oxygen Saturation 100% 04/20/2008 10:30 AM CHUTE GREASER Plan of Care Health Maintenance Due Date Last Done Comments Hepatitis C Screening 1955 Physical (Comprehensive) 1960 Exam Pertussis Vaccine 1964 Tetanus Vaccine 1970 Colorectal Cancer 07/16/2003 Screening Shingles Vaccine 2013 Influenza Vaccine 10/29/2016 Results from Last 3 Months Not on file
--- OUTSIDE RECORDS SUMMARY | 2016-07-17 16:11 | XMS REPORT | Continuity of Care Document ---
Author Author [facility] Organization [facility] Address Unknown Phone Unavailable Allergies Active Description Code Type Severity Reaction Onset Reported/Identified Relationship to Patient Clinical Status Yes LORATAB N/A N/A Yes LORTAB 88542 2 HICCUPS ITCHING 06/10/2011 Medications Medication Packaging [...] 2 MG/1ML SYRINGE ML 06/16/2015 06/15/2016 IVP [id number] MORPHINE 4MG/1ML SYRINGE ML 06/16/2015 06/15/2016 IVP [id number] OXYcodone/ACETAMINOPHEN 7.5-325 MG TABLET TAB 06/16/20152016 PO F2JCYEM BISACODYL 10MG SUPPOS. SUP 06/16/2015 06/15/2016 OH* PRN ONDANSETRON 4MG TABLET TAB 06/16/2015 06/15/2016 PO [id number] METOCLOPRAMIDE 10MG TABLET TAB 06/16/2015 06/15/2016 PO G2THKBZI BISACODYL 5MG TABLET TAB 06/16/2015 06/15/2016 PO PRN SODIUM CHLORIDE 0.9% 1000ML IV SOLN BAG 06/16/2015 06/16/2015 LVP 70ML/HR ONDANSETRON 4MG/2ML INJ VL 06/16/2015 06/15/2016 IVP [id number] METOCLOPRAMIDE 10MG/2ML INJ VL 06/16/2015 06/15/2016 IVP [id number] CYCLOBENZAPRINE 10 MG TABLET TAB 06/16/2015 06/15/2016 PO K3VDGOU *OLOPATADINE OPHTHALMIC DROPS 06/16/2015 06/15/2016 OU PRN *PREGABALIN 100 MG CAPSULE CAP 06/16/2015 06/15/2016 PO BID& 0900,2100 *DULoxetine 30MG CAPSULE CAP 06/16/2015 06/15/2016 PO HS&2200 *[id number] 50-325-40 MG TABLET TAB 06/16/2015 PO Q4HPRN [...] INHALER [16GM] MDI 07/09/2015 06/16/2015 LISA PRN *[id number] 50-325-40 MG TABLET TAB 07/09/2015 PO Q4HPRN [...] 81.62 FUS/REFUS 2-3 VERTEBRAE ASIF ARANDA 06/14/2011 [id number] Computerized Tomography (CT Scan) of Spi 04/16/2015 [id number] Excision of Cervical Vertebral Joint, Op ASIF ARANDA 06/16/2015 [id number] Excision of Cervical Vertebral Disc, Ope ASIF ARANDA 06/16/2015 [id number] Fusion of Cervical Vertebral Joint with YULISA ARANDAMOND 06/16/2015 Results Encounters ACCT No. Visit Date/Time Discharge Status Pt. Type Provider Facility Loc./Unit Complaint [id number] 08/01/2015 12:14:00 08/01/2015 12: 14:00 DIS Outpatient [facility] RADS [id number] 06/16/2015 07:05:00 06/17/2015 13: 25:00 DIS 01 [facility] [place] NO KNOWN INJURY,stenosis. [id number] 04/16/2015 09:19:00 04/16/2015 15: 21:00 DIS 26 [facility] [place] [id number] 06/14/2011 08:30:00 Document Registration
--- NOTE | 2016-07-17 16:16 | NUR ---
RADIOLOGY PT TO RADIOLOGY PER CART
[2016-07-17 16:26] LABS: BASOPHILS % (AUTO) 0.4 % (0-2); EOSINOPHILS # (AUTO) 0.1 T/MM3 (0-0.5); EOSINOPHILS % (AUTO) 1.3 % (0-4); HCT - HEMATOCRIT 42.8 % (41-53); HGB - HEMOGLOBIN 14.6 GM/DL (13.5-17.5); IMMATURE GRANULOCYTE # (AUTO) 0.01 T/MM3 (0.00-0.03); IMMATURE GRANULOCYTE % (AUTO) 0.1 % (0.0-0.5); MEAN CORPUSCULAR HGB CONC(MCHC 34.1 GM/DL (31-37); MEAN CORPUSCULAR VOLUME 84.9 UM3 (80-100); MONOCYTES # (AUTO) 0.6 T/MM3 (0-0.8); MONOCYTES % (AUTO) 6.8 % (0-9.0); NEUTROPHILS #(AUTO)-ABSOLUTE 3.7 T/MM3 (1.8-7.7); NEUTROPHILS % (AUTO) 43.4 % (33-66); RED BLOOD COUNT 5.04 M/MM3 (4.50-5.90); WBC - WHITE BLOOD COUNT 8.4 T/MM3 (4.5-11.0)
--- NOTE | 2016-07-17 16:28 | NUR ---
RADIOLOGY PT FROM RADIOLOGY PER CART
[2016-07-17 16:35] LABS: ALBUMIN 4.6 G/DL (3.5-5.0); ALBUMIN/GLOBULIN RATIO 1.7 RATIO (1.1-2.2); ALKALINE PHOSPHATASE 80 U/L (38-126); ALT (SGPT) 36 U/L (21-72); ANION GAP 16 MEQ/L (5-15); AST (SGOT) 28 U/L (17-59); BUN/CREATININE RATIO 18 RATIO (6-26); CALCIUM 9.5 MG/DL (8.4-10.2); CHLORIDE 106 MEQ/L (98-107); CO2 - CARBON DIOXIDE 26 MEQ/L (22-30); CREATININE 0.9 MG/DL (0.8-1.5); GLOMERULAR FILTRATION RATE 85; GLUCOSE 85 MG/DL (75-110); POTASSIUM 4.1 MEQ/L (3.6-5); SODIUM 148 MEQ/L (134-144); TOTAL PROTEIN 7.3 G/DL (6.3-8.2)
[2016-07-17] MEDS ORDERED: CEPH500C2 PO (16:36)
--- NOTE | 2016-07-17 16:40 | ERPDOC ---
Departure Disposition Decision Date: July 17, 2016 Disposition Decision Time: 17:30 Disposition: 02 TO [facility] Impression Impression Impression: Primary Impression: Altered mental state Altered mental status type: unspecified Qualified Codes: R41.82 - Altered mental status, unspecified Severity: Moderate Condition: Improved Seen By: Physician only Referrals: MARIANA MACKEY MD (Family) Problems/Meds/Labs Reviewed?: Yes Medications reviewed and manag: Yes Follow up care ordered?: Yes Mental Status: Alert, Oriented Critical Care Note Total Time (mins): 35 Critical Care Spent: [id number] care of pt, Reviewing test results, Discuss the case w/staff, Documenting the MR, Discussion w/ family/DPOA During this visit the pt was: At Risk of Deterioration HPI - General Medical General Chief Complaint: Neuro Symptoms/Deficits Stated Complaint: CONFUSION, NO MEMORY Time Seen by Provider: 16:00 Source: patient, family Exam Limitations: no limitations HPI - General Medical Initial Comments 61-year-old male presents to emergency department with a chief complaint of altered mental status. The patient's notes that the patient was confused earlier today. Patient's states that she noted the confusion around approximately 1 PM. Patient was last known normal was shortly before 10 AM today. Patient denies any pain or discomfort. Patient's states that the patient has been repetitively asking questions. Patient is not remembering facts that he should have known. Patient denies any pain or discomfort. There are no other complaints or associated symptoms. He has not been recently ill. Patient was recently diagnosed with prostate cancer this past week and is currently undergoing a workup. He does not note any exacerbating or remitting factors. Patient denies any trauma or injury. He denies any recent medication adjustments or changes. He denies any recent alcohol or drug abuse. Patient's symptoms have resolved upon arrival to the emergency department. Occurred At: home Onset: other (Resolved. ) Allergies: Coded Allergies: acetaminophen (Verified Adverse Reaction, Unknown, ITCHY, HICCUPS, 07/02/16) hydrocodone (Verified Adverse Reaction, Unknown, ITCHY, HICCUPS, 07/02/16) oxycodone (Verified Adverse Reaction, Unknown, ITCHY, HICCUPS, 07/02/16) Past History Past Medical History Metabolic: hypercholesterolemia, hypothyroidism ENMT: allergies GI: GERD Neurological: migraines Musculoskeletal: back pain Surgical History Joint: other (Neck) Family History Family History: Negative Social History Smoking Status: Never smoker Substance Use Type: does not use Alcohol Intake: none Review of Systems Constitutional Constitutional: DENIES: chills, fever Eyes General: DENIES: erythema, exudate Lids/Accessories: DENIES: erythema, swelling Vision: DENIES: acuity, blurring ENMT Ears: DENIES: drainage, pain Hearing: DENIES: hearing loss Balance: DENIES: ataxia, falling to one side Sinuses: DENIES: congestion, pain Nose: DENIES: nosebleeds, pain Mouth/Throat: DENIES: painful swallowing, sore throat Teeth: DENIES: pain Jaw: DENIES: pain Cardiovascular Cardiac: DENIES: chest pain, dyspnea on exertion Rhythm/Rate: DENIES: irregular beat, palpitations Vascular: DENIES: pedal edema, unilateral swelling Pulmonary Respiratory: DENIES: cough, dyspnea, pleuritic chest pain, sputum GI Upper Abdomen: DENIES: nausea, pain, vomiting Lower Abdomen: DENIES: diarrhea, pain General: DENIES: dysuria, frequency, urgency Musculoskeletal General: DENIES: joint pain, tenderness Integumentary Skin: DENIES: itching, rash Neurological General: memory disturbances, DENIES: change in strength, headache, numbness, weakness Psychiatric Psychiatric: DENIES: emotional instability, suicidal ideation/attempt Endocrine Endocrine: DENIES: polydipsia, polyphagia Hematologic/Lymphatic Hematologic/Lymphatic: DENIES: frequent nosebleeds, lymphadenopathy Allergic/Immunological Allergic/Immunoligical: DENIES: allergic reactions, hives Physical Exam General General Nourishment: well nourished, well developed, appears stated age, no acute distress, adult General Body Habitus: well groomed Vitals and Pain First Documented Vital Signs Date Time Temp Pulse Resp B/P Pulse Ox O2 Delivery O2 Flow Rate FiO2 07/17/16 16:00 98.6 72 18 160/93 99 Room Air Weight: Kilograms: 119.300 Height (feet): 5 Height (inches): 10.00 Triage Pain Scale: RN VS reviewed by Provider: Yes Normal Exams: Head: Normocephalic w/o trauma Eyes: Pupils are PERRLA w/ EOMI, No scleral icterus, irritation, or foreign bodies noted ENMT: No facial trauma, nasal exudates, pharyngeal erythema, or exudates are noted Dental: No fractured, loose, or missing teeth noted Neck: Full range of motion, without adenopathy, JVD, bruits or thyromegaly Chest/Resp: Clear all melton, with good airflow, and symmetry bilaterally CV: Regular rate and rhythm, without murmur or gallop, Pulses 2+ all extremities, capillary refill, <2 seconds all ext., no pedal edema noted Abdomen: Bowel sounds positive, soft, non-tender, non-distended, no hepatosplenomegaly, masses or bruits noted Lymphatic: No lymphadenopathy, or lymphedema noted Musculoskeletal: No tenderness, or deformity noted, good range of motion, all extremities Integumentary: No rashes, hives, or bruising noted, hair and nails, without abnormality Neurologic: Patient is alert, and oriented, cranial nerves, motor/sensory/ cerebellar, exams w/o gross deficits, to observation Psychiatric: Patient exhibits, appropriate attention, emotion and affect Neurologic (brief) Comments Alert and oriented 4. CN 2-12 intact. Strength Normal. Normal sensation. Normal motor. Normal coordination. Normal speech. Absent Babinski bilaterally. Reflexes 2/4 in all extremities. No focal neurologic deficit. Unremarkable neurologic examination. NIH-0. Differential Diagnoses Considering: Hypo/Hyperglycemia, Medication Effect, Metabolic, TIA Progress Results/Orders Orders Procedure Category Date Status Time Cbc W/Auto LAB 07/17/16 Complete Diff-Reflex Manual Cmp - Comprehensive LAB 07/17/16 Complete Metabolic Troponin I W LAB 07/17/16 Complete Hemolysis Index EKG EKG 07/17/16 Taken INR LAB 07/17/16 Complete PTT LAB 07/17/16 Complete Ua, Dip Wreflex LAB 07/17/16 Logged [employer] Helper 16:11 Chest 1 View RAD 07/17/16 Taken 16:11 Ct Head W/O Contrast CT 07/17/16 Taken 16:11 [address] In Facility: ED ADM 07/17/16 Transmitted 17:59 Lab Results Laboratory Tests Test 07/17/16 16:14 07/17/16 16:19 07/17/16 16:38 Glucometer 79mg/dL White Blood Count 8.4T/MM3 Red Blood Count 5.04M/MM3 Hemoglobin 14.6GM/DL Hematocrit 42.8% Mean Corpuscular Volume 84.9UM3 Mean Corpuscular Hemoglobin 29.0UUG Mean Corpuscular Hemoglobin Concent 34.1GM/DL RDW Standard Deviation 43.0FL Platelet Count 212T/MM3 Mean Platelet Volume 11.0UM3 Immature Granulocyte % (Auto) 0.1% Neutrophils (%) (Auto) 43.4% Lymphocytes (%) (Auto) 48.0% Monocytes (%) (Auto) 6.8% Eosinophils (%) (Auto) 1.3% Basophils (%) (Auto) 0.4% Absolute Immature Granulocyte (auto 0.01T/MM3 Absolute Neutrophils (auto) 3.7T/MM3 Absolute Lymphocytes (auto) 4.0T/MM3 Absolute Monocytes (auto) 0.6T/MM3 Absolute Eosinophils (auto) 0.1T/MM3 Absolute Basophils (auto) 0.0T/MM3 Turbidity < 20 Sodium Level 148MEQ/L Potassium Level 4.1MEQ/L Chloride Level 106MEQ/L Carbon Dioxide Level 26MEQ/L Anion Gap 16MEQ/L Blood Urea Nitrogen 16.0MG/DL Creatinine 0.9MG/DL Glomerular Filtration Rate Calc 85 BUN/Creatinine Ratio 18RATIO Glucose Level 85MG/DL Calculated Osmolality 284MOSM/KG Calcium Level 9.5MG/DL Total Bilirubin 0.80MG/DL Icterus Index < 2 Aspartate Amino Transf (AST/SGOT) 28U/L Alanine Aminotransferase (ALT/SGPT) 36U/L Alkaline Phosphatase 80U/L Troponin I < 0.012ng/ml Total Protein 7.3G/DL Albumin 4.6G/DL Globulin 2.7G/DL Albumin/Globulin Ratio 1.7RATIO Thyroid Stimulating Hormone (TSH) 2.05MIU/L Chemistry Specimen Hemolysis < 15 Prothromb Time International Ratio 0.96 Activated Partial Thromboplast Time 27.4SEC Progress Progress Labs / imaging were discussed in detail with the patient and questions are answered. Patient's symptoms appear to have resolved in the emergency department. Patient is not a TPA candidate as the exact time of onset of symptoms is unknown and he is outside of the window for TPA treatment. Patient has a low NIH of 0 and his symptoms have completely resolved. Patient is given aspirin 324 mg by mouth 1 in the emergency Department. Patient is admitted to the service of the hospitalist in improved condition. Patient is in agreement with the current plan of management. He is to follow up as instructed. Patient is to return to the emergency department if his condition worsens or changes in any manner. Patient and family are in agreement with the current plan of management. Patient is accepted to the service of Dr. Cook who is in agreement with the current plan of management. UA is pending at the time of admission and will be followed by the hospitalist. 35 minutes of critical care time was assessed to the patient due to the need for complex medical decision-making, repeated assessment at bedside, and potential for decompensation. Patient also was considered for a TPA candidate and did not meet the criteria. EKG EKG : Rate: 60-100 Rhythm: sinus Mackey: normal QRS: normal Intervals: normal ST/T: normal Interpreted by: signing physician Xray Xray : Xray: CXR Portable Interpretation: Normal, Interpreted by Tn CT CT : Interpretation: Normal, Faxed Report GEOVANNY COWAN DO July 17, 2016 16:40
[2016-07-17 16:50] LABS: INR 0.96 (0.77-1.03); PROTHROMBIN TIME 10.6 SEC (9.48-12.52); PTT 27.4 SEC (24-36)
--- OUTSIDE RECORDS SUMMARY | 2016-07-17 18:09 | XMS REPORT | Continuity of Care Document ---
Author Author [facility] Organization [facility] Address Unknown Phone Unavailable Care Team Providers Care Irrigation Technician Name Role Phone Benigno Chappell Primary Care Physician [phone] Source Comments Some departments are not documenting in the electronic medical record. 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
--- OUTSIDE RECORDS SUMMARY | 2016-07-17 18:10 | XMS REPORT | Continuity of Care Document ---
Author Author [facility] Organization [facility] Address Unknown Phone Unavailable Allergies Active Description Code Type Severity Reaction Onset Reported/Identified Relationship to Patient Clinical Status Yes LORATAB N/A N/A Yes LORTAB 12177 2 HICCUPS ITCHING 06/10/2011 Medications Medication Packaging [...] 2 MG/1ML SYRINGE ML 06/16/2015 06/15/2016 IVP [id number] MORPHINE 4MG/1ML SYRINGE ML 06/16/2015 06/15/2016 IVP [id number] OXYcodone/ACETAMINOPHEN 7.5-325 MG TABLET TAB 06/16/20152016 PO K8UMAOD BISACODYL 10MG SUPPOS. SUP 06/16/2015 06/15/2016 [place]* PRN ONDANSETRON 4MG TABLET TAB 06/16/2015 06/15/2016 PO [id number] METOCLOPRAMIDE 10MG TABLET TAB 06/16/2015 06/15/2016 PO F8ARIOWB BISACODYL 5MG TABLET TAB 06/16/2015 06/15/2016 PO PRN SODIUM CHLORIDE 0.9% 1000ML IV SOLN BAG 06/16/2015 06/16/2015 LVP 70ML/HR ONDANSETRON 4MG/2ML INJ VL 06/16/2015 06/15/2016 IVP [id number] METOCLOPRAMIDE 10MG/2ML INJ VL 06/16/2015 06/15/2016 IVP [id number] CYCLOBENZAPRINE 10 MG TABLET TAB 06/16/2015 06/15/2016 PO Q4TZFCA *OLOPATADINE OPHTHALMIC DROPS 06/16/2015 06/15/2016 OU PRN *PREGABALIN 100 MG CAPSULE CAP 06/16/2015 06/15/2016 PO BID& 0900,2100 *DULoxetine 30MG CAPSULE CAP 06/16/2015 06/15/2016 PO HS&2200 *[id number] 50-325-40 MG TABLET TAB 06/16/2015 PO Q4HPRN [...] INHALER [16GM] MDI 07/09/2015 06/16/2015 LISA PRN *[id number] 50-325-40 MG TABLET TAB 07/09/2015 PO Q4HPRN [...] 81.62 FUS/REFUS 2-3 VERTEBRAE ASIF ARANDA 06/14/2011 [id number] Computerized Tomography (CT Scan) of Spi 04/16/2015 [id number] Excision of Cervical Vertebral Joint, Op ASIF ARANDA 06/16/2015 [id number] Excision of Cervical Vertebral Disc, Ope ASIF ARANDA 06/16/2015 [id number] Fusion of Cervical Vertebral Joint with YULISA ARANDAMOND 06/16/2015 Results Encounters ACCT No. Visit Date/Time Discharge Status Pt. Type Provider Facility Loc./Unit Complaint [id number] 08/01/2015 12:14:00 08/01/2015 12: 14:00 DIS Outpatient [facility] RADS [id number] 06/16/2015 07:05:00 06/17/2015 13: 25:00 DIS 01 [facility] INPT NO KNOWN INJURY,stenosis. [id number] 04/16/2015 09:19:00 04/16/2015 15: 21:00 DIS 26 [facility] INPT [id number] 06/14/2011 08:30:00 Document Registration
--- NOTE | 2016-07-17 18:40 | NUR ---
ADMIT PT ASSISTED TO WC. PT'S GAIT STEADY. FAMILY AT BEDSIDE. PT TAKEN VIA WC TO MEDICAL UNIT AT THIS TIME BY TYRESE AGUILAR, TRAFFIC REPRESENTATIVE.
[2016-07-17 18:50] VITALS: Ht 175.3 cm; Wt 118.0 kg
[2016-07-17 18:51] VITALS: BP 143/92; PULSE 61; RESP 16; TEMP 97.4; O2SAT 99
[2016-07-17] MEDS ORDERED: BUTALBITAL/APAP/CAFFEINE TABLET PO PRN (19:45)
[2016-07-17] MEDS ORDERED: NORMAL SALINE 1,000 ML IV SCH (19:45)
--- NOTE | 2016-07-17 19:56 | NUR ---
admit Pt A/O x3, memory clearing, pt stating feeling better. Ambulating good with standby assist, no SOA. To room at 1845 via WC. V/S taken and stable on RA.
--- NOTE | 2016-07-17 20:19 | HPPDOC ---
HPI - Adult Date DATE: 07/17/16 TIME: 19:41 General Chief Complaint: confusion History of Present Illness The 61-year-old otherwise well patient who developed a confusional state with difficulty with short-term memory at about 10 o'clock this morning. During this period family noted no difficulty with motor function arm leg lip facial droop or any lateral lysing symptoms. His speech was retained and he had a rather waxing and waning course with this letter resolved prior to arriving in the ER. He had had no symptoms for a few hours but began to have a strange sensation that he called an aura again in the emergency room at the time of physical exam. Although at no point was he confused Past Medical History Past Medical History Patient's Medical History: (1) Chronic back pain (2) Migraines (3) Hypothyroidism Onset Date: ~ 06/2016 Patient also had biopsies of his prostate with the [place] score of 6 to 8 Surgical History Patient's Surgical History: Recently took tablesaw to his index finger and is on Keflex Current Medications Home Meds Reported Medications Cephalexin (Cephalexin) 500 Mg Capsule, 500 MG PO BID for 10 Days 07/17/16 Butalb/Acetaminophen/Caffeine (Fioricet 50-300-40 mg Capsule) 1 Each Capsule, 1 TAB PO PRN 07/02/16 Olopatadine HCl (Patanol) 50 Drop/5 Ml Drops, 2 DROP BOTH EYES PRN, ML 07/02/16 Fluticasone Propionate (Flonase Allergy Relief 50 mcg/actuation Nasal) 9.9 Ml [place].susp, 2 SPRAY EA NOSTRIL PRN 07/02/16 Acetaminophen (Tylenol Extra Strength) 500 Mg Tablet, 2 TAB PO TID Y for PAIN/ FEVER, TAB 07/02/16 Cyclobenzaprine HCl (Cyclobenzaprine HCl) 10 Mg Tablet, 10 MG PO TID Y for PRN ORDERS 07/02/16 Ranitidine HCl (Ranitidine HCl) 150 Mg Tablet, 150 MG PO HS 07/02/16 Loratadine (Claritin) 10 Mg Tablet, 10 MG PO DAILY 07/02/16 Pravastatin Sodium (Pravastatin Sodium) 20 Mg Tablet, 20 MG PO HS 07/02/16 Duloxetine HCl (Cymbalta) 30 Mg Capsule, 30 MG PO DAILY 07/02/16 Pregabalin (Lyrica) 100 Mg Capsule, 100 MG PO HS, CAP 07/02/16 Glucosam/MSM/Chondroit/Vit D3 (Sv Glucosamine Chondroitin Tab) 1 Each Tablet, 1 TAB PO DAILY 07/02/16 Psyllium Husk (Metamucil) 660 Gm Powder, 660 GM PO BID 07/02/16 [place]arat-3S/Dha/Epa/Fish Oil (Fish Oil EC 1,200 mg Softgel) 1 Each Capsule.dr, 1 TAB PO BID 07/02/16 Multivitamin (Multi-Day Vitamins) 1 Each Tablet, 1 TAB PO DAILY 07/02/16 Levothyroxine Sodium (Levothyroxine Sodium) 50 Mcg Tablet, 50 MCG PO ACB 07/02/16 Pantoprazole Sodium (Pantoprazole Sodium) 40 Mg Tablet.dr, 40 MG PO ACB 07/02/16 Celecoxib (Celebrex) 200 Mg Capsule, 200 MG PO DAILY 07/02/16 Allergies: Coded Allergies: acetaminophen (Verified Adverse Reaction, Unknown, ITCHY, HICCUPS, 07/02/16) hydrocodone (Verified Adverse Reaction, Unknown, ITCHY, HICCUPS, 07/02/16) oxycodone (Verified Adverse Reaction, Unknown, ITCHY, HICCUPS, 07/02/16) Family History Family History: Non-smoker nondrinker. with children. Actively working Social History Smoking Status: Never smoker Substance Use Type: does not use Alcohol Intake: none Review of Systems Constitutional: DENIES: chills, dizziness, fever, weakness Eyes Vision: DENIES: acuity, aura, blurring, bright flashes, change in color, double vision ENMT Mouth/Throat: DENIES: scratchy throat, sore throat Cardiovascular DENIES: chest pain Rhythm/Rate: DENIES: palpitations Pulmonary Respiratory: DENIES: cough, dyspnea, sputum GI Upper Abdomen: DENIES: nausea, vomiting General: DENIES: dysuria, frequency Integumentary Skin: lesion, DENIES: rash, sores Neurological General: DENIES: ataxia, blindness, change in strength, headache, syncope, tremor, vertigo, weakness Physical Exam General General Nourishment: well nourished General Body Habitus: well groomed Vital Signs Vital Signs Date Time Temp Pulse Resp B/P Pulse Ox O2 Delivery O2 Flow Rate FiO2 07/17/16 18:51 97.4 61 16 143/92 99 Room Air Height (Feet): 5 Height (Inches): 9.00 Eyes Brief: FOUND: EOMI, PERRL, NOT FOUND: scleral icterus Neck Brief: NOT FOUND: JVD, nuchal rigidity Respiratory Brief: FOUND: equal bilaterally Cardiovascular (brief) Cardiac Brief: FOUND: regular rate, regular rhythm Abdomen (brief) Abdominal Brief: FOUND: BS normo active x4, soft Integumentary (brief) Integumentary Brief: FOUND: dry, pink, warm Neurologic (brief) Neurological Brief: FOUND: cranial 2-12 intact, motor, sensory, NOT FOUND: facial droop, ptosis Neurologic GCS Eye Opening: (4)Spontaneous GCS Verbal: (5)Oriented GCS Motor: (6)Obeys Commands RN Documented GCS Eye Opening: (4)Spontaneous Verbal: (4)Confused Motor: (6)Obeys Commands Total: Cranial Nerves: FOUND: forehead movement, hearing, shoulder shrug Motor: 5: Biceps (L), Biceps (R), Triceps (L), Triceps (R) Psychiatric (brief) FOUND: alert, attentive, normal affect, oriented Laboratory Laboratory Tests Test 07/17/16 16:14 07/17/16 16:19 07/17/16 16:38 Glucometer 79mg/dL White Blood Count 8.4T/MM3 Red Blood Count 5.04M/MM3 Hemoglobin 14.6GM/DL Hematocrit 42.8% Mean Corpuscular Volume 84.9UM3 Mean Corpuscular Hemoglobin 29.0UUG Mean Corpuscular Hemoglobin Concent 34.1GM/DL RDW Standard Deviation 43.0FL Platelet Count 212T/MM3 Mean Platelet Volume 11.0UM3 Immature Granulocyte % (Auto) 0.1% Neutrophils (%) (Auto) 43.4% Lymphocytes (%) (Auto) 48.0% Monocytes (%) (Auto) 6.8% Eosinophils (%) (Auto) 1.3% Basophils (%) (Auto) 0.4% Absolute Immature Granulocyte (auto 0.01T/MM3 Absolute Neutrophils (auto) 3.7T/MM3 Absolute Lymphocytes (auto) 4.0T/MM3 Absolute Monocytes (auto) 0.6T/MM3 Absolute Eosinophils (auto) 0.1T/MM3 Absolute Basophils (auto) 0.0T/MM3 Turbidity < 20 Sodium Level 148MEQ/L Potassium Level 4.1MEQ/L Chloride Level 106MEQ/L Carbon Dioxide Level 26MEQ/L Anion Gap 16MEQ/L Blood Urea Nitrogen 16.0MG/DL Creatinine 0.9MG/DL Glomerular Filtration Rate Calc 85 BUN/Creatinine Ratio 18RATIO Glucose Level 85MG/DL Calculated Osmolality 284MOSM/KG Calcium Level 9.5MG/DL Total Bilirubin 0.80MG/DL Icterus Index < 2 Aspartate Amino Transf (AST/SGOT) 28U/L Alanine Aminotransferase (ALT/SGPT) 36U/L Alkaline Phosphatase 80U/L Troponin I < 0.012ng/ml Total Protein 7.3G/DL Albumin 4.6G/DL Globulin 2.7G/DL Albumin/Globulin Ratio 1.7RATIO Thyroid Stimulating Hormone (TSH) 2.05MIU/L Chemistry Specimen Hemolysis < 15 Prothromb Time International Ratio 0.96 Activated Partial Thromboplast Time 27.4SEC Radiology CT exam appears benign except for what appears to be a Falcine calcification, that I will corroborate with the MRI I am ordering. I am dubious of the idea that this is a meningioma Assessment & Plan Problems: (1) Altered mental state Status: Acute Qualifiers: Altered mental status type: unspecified Qualified Codes: R41.82 - Altered mental status, unspecified Assessment & Plan: Despite the altered mental state patient has currently an NIH stroke scale of 0 and no lateral lysing symptoms have ever been seen. I'm more likely to think this is related to medication interaction that he is unable to recall due to his confused state. However we will get an MRI of the head which will corroborate the condition in the anterior falx, as well as rule out any cerebrovascular accident (2) Migraines Assessment & Plan: Another likely reason for acute confusional state patient is not having or at this time (3) Hypothyroidism Onset Date: ~ 06/2016 Assessment & Plan: Will recheck a TSH the free T4 (4) Chronic back pain Assessment & Plan: Will hold some of his medicines for the back pain as they are likely to cause altered mental state but some will have to be given for pain control Assessment Patient is being placed in observation this time to rule out any organic brain dysfunction. Code Status Full Code Hospital Course Summary Disclaimer The hospital course summary below is not to be considered part of the above Progress Note. AUTUMN STAFFORD MD July 17, 2016 19:44
[2016-07-17] MEDS: CEPHALEXIN 500 MG CAPSULE PO SCH (21:24)
[2016-07-17 21:44] LABS: BLOOD, URINE NEGATIVE (NEGATIVE); COLOR,URINE YELLOW (YELLOW); LEUKOCYTE ESTERASE ,URINE NEGATIVE (NEGATIVE); NITRITE,URINE NEGATIVE (NEGATIVE); UROBILINOGEN,URINE 0.2 EU/DL (NORMAL)
[2016-07-17] MEDS ORDERED: PREGABALIN 100 MG CAPSULE PO SCH (22:00)
[2016-07-17 23:50] VITALS: BP 127/78; PULSE 69; RESP 18; TEMP 97.1; O2SAT 97
--- NOTE | 2016-07-18 04:38 | NUR ---
A&O X3, MEMORY IS IMPROVING. ONE LITTLER OF NS COMPLETED INFUSING. DENIES PAIN, SOA. STEADY ON FEET, AD GENA IN ROOM. UA COLLECTED. PT RESTED WELL.
[2016-07-18] MEDS ORDERED: LEVOTHYROXINE 50 MCG TABLET PO SCH (06:30)
[2016-07-18 07:14] VITALS: BP 130/88; PULSE 59; RESP 18; TEMP 96.5; O2SAT 98
--- NOTE | 2016-07-18 08:00 | NUR ---
Status Patient assessed. Neuro assessment unremarkable, neuro status at baseline. Patient denies pain or nausea. Denies need to shower due to expecting to leave today.
[2016-07-18] MEDS ORDERED: ASPIRIN 325 MG TABLET PO SCH (09:00)
[2016-07-18] MEDS ORDERED: ASPIRIN 81 MG CHEWABLE TABLET PO SCH (09:00)
[2016-07-18] MEDS ORDERED: PANTOPRAZOLE 40mg INJECTION IV SCH (09:00)
[2016-07-18] MEDS: CEPHALEXIN 500 MG CAPSULE PO SCH (09:08)
--- NOTE | 2016-07-18 11:17 | DI ---
Indication: ITS.REASON: Altered mental status PROCEDURE: CHEST 1 VIEW: Encounter: Initial Comparison: None FINDINGS: The lungs are clear. There is no abnormal airspace opacity, pleural effusion or pneumothorax identified. The heart size, pulmonary vasculature and mediastinum are within normal limits. Thoracic spinal stimulator leads. IMPRESSION: No acute cardiopulmonary abnormality. .
--- NOTE | 2016-07-18 11:19 | DI ---
Indication: ITS.REASON: Altered mental status PROCEDURE: CT HEAD W/O CONTRAST: Encounter: Initial Comparison: Brain MRI dated April 03, 2014 Technique: Axial CT images through the head were performed without contrast. Iterative Reconstruction dose reducing technique was utilized. FINDINGS: The ventricles are of normal size, shape, and contour for the patient's age. There are scattered areas of low attenuation in the white matter which most likely represent changes from chronic microvascular ischemia. The brainstem, cerebellum, and cerebral hemispheres otherwise have a normal morphology and CT attenuation. There is no evidence of midline displacement. No hemorrhage, signs of acute territorial stroke, mass effect, mass lesions, or edema is evident. The visualized portions of the skull base, midface, and calvarium demonstrate no abnormality. The paranasal sinuses are well aerated and free of significant disease. The tympanic and mastoid cavities appear normal. Mildly prominent calcification along the anterior falx could represent a small meningioma. IMPRESSION: No acute intracranial abnormality or hemorrhage. There is a preliminary report by [employer] radiologic. .
--- NOTE | 2016-07-18 12:00 | NUR ---
Status Patient anxiously waiting to go home. RN communication with Dr Cook patient's concerns about staying and testing he has planned for tomorrow. stated he would visit with patient. Patient and made aware.
--- NOTE | 2016-07-18 13:30 | DI ---
Indication: ITS.REASON: confusion PROCEDURE: MRI BRAIN W/O CONTRAST: Encounter: Initial Comparisons: Head CT dated July 17, 2016 and brain MRI dated April 03, 2014 Technique: Multiplanar, multisequence, MR imaging of the head without contrast was acquired. FINDINGS: 1.5 x 0.5 cm calcification versus small calcified meningioma along the right anterior aspect of the falx. This is unchanged dating back to 2014. The brain stem, cerebellum, and cerebral hemispheres otherwise have a normal morphologic appearance as well as MR signal intensity on all pulse sequences. There are no areas of restricted diffusion on diffusion weighted imaging to suggest an acute infarct. There is no evidence of an intracranial hemorrhage, or hydrocephalus. The visualized portions of the orbits, calvarium, paranasal sinuses, and skull base demonstrate no significant abnormality. IMPRESSION: No acute intracranial abnormality. Stable exam. .
--- NOTE | 2016-07-18 14:15 | NUR ---
Communication Dr Cook notified MRI results were in computer.
--- NOTE | 2016-07-18 14:57 | DSPDOC ---
General Date Date DATE: 07/18/16 TIME: 14:49 Attending Physician Autumn Stafford MD Admitting Physician Autumn Stafford MD Consulting Physician Admitting Diagnosis altered mental status Discharge Diagnosis Altered mental status resolved Procedures MRI of head showing stable calcification in the anterior Falx Laboratory Laboratory Tests Test 07/17/16 16:14 07/17/16 16:19 07/17/16 16:38 07/17/16 21:26 Glucometer 79mg/dL (75-110) White Blood Count 8.4T/MM3 (4.5-11.0) Red Blood Count 5.04M/MM3 (4.50-5.90) Hemoglobin 14.6GM/DL (13.5-17.5) Hematocrit 42.8% (41-53) Mean Corpuscular Volume 84.9UM3 (80-100) Mean Corpuscular Hemoglobin 29.0UUG (26-34) Mean Corpuscular Hemoglobin Concent 34.1GM/DL (31-37) RDW Standard Deviation 43.0FL (36.9-50.2) Platelet Count 212T/MM3 (130-400) Mean Platelet Volume 11.0UM3 (9.4-12.4) Immature Granulocyte % (Auto) 0.1% (0.0-0.5) Neutrophils (%) (Auto) 43.4% (33-66) Lymphocytes (%) (Auto) 48.0% (23-45) Monocytes (%) (Auto) 6.8% (0-9.0) Eosinophils (%) (Auto) 1.3% (0-4) Basophils (%) (Auto) 0.4% (0-2) Absolute Immature Granulocyte (auto 0.01T/MM3 (0.00-0.03) Absolute Neutrophils (auto) 3.7T/MM3 (1.8-7.7) Absolute Lymphocytes (auto) 4.0T/MM3 (1-4.8) Absolute Monocytes (auto) 0.6T/MM3 (0-0.8) Absolute Eosinophils (auto) 0.1T/MM3 (0-0.5) Absolute Basophils (auto) 0.0T/MM3 (0-0.2) Turbidity < 20 (0-20) Sodium Level 148MEQ/L (134-144) Potassium Level 4.1MEQ/L (3.6-5) Chloride Level 106MEQ/L (98-107) Carbon Dioxide Level 26MEQ/L (22-30) Anion Gap 16MEQ/L (5-15) Blood Urea Nitrogen 16.0MG/DL (9-20) Creatinine 0.9MG/DL (0.8-1.5) Glomerular Filtration Rate Calc 85 BUN/Creatinine Ratio 18RATIO (6-26) Glucose Level 85MG/DL (75-110) Calculated Osmolality 284MOSM/KG (261-280) Calcium Level 9.5MG/DL (8.4-10.2) Total Bilirubin 0.80MG/DL (0.20-1.30) Icterus Index < 2 (0-7) Aspartate Amino Transf (AST/SGOT) 28U/L (17-59) Alanine Aminotransferase (ALT/SGPT) 36U/L (21-72) Alkaline Phosphatase 80U/L (38-126) Troponin I < 0.012ng/ml (0-0.12) Total Protein 7.3G/DL (6.3-8.2) Albumin 4.6G/DL (3.5-5.0) Globulin 2.7G/DL (2.4-3.6) Albumin/Globulin Ratio 1.7RATIO (1.1-2.2) Thyroid Stimulating Hormone (TSH) 2.05MIU/L (0.47-4.68) Chemistry Specimen Hemolysis < 15 (0-25) Prothromb Time International Ratio 0.96 (0.77-1.03) Activated Partial Thromboplast Time 27.4SEC (24-36) Urine Collection Type Cleancatch-midstream Urine Color Yellow (YELLOW) Urine Turbidity Clear (CLEAR) Urine pH 7.0 (5.0-8.0) Urine Specific [place] 1.010 (1.015-1.025) Urine Protein Negative (NEGATIVE) Urine Glucose (UA) Negative (NEGATIVE) Urine Ketones Negative (NEGATIVE) Urine Blood Negative (NEGATIVE) Urine Nitrite Negative (NEGATIVE) Urine Bilirubin Negative (NEGATIVE) Urine Urobilinogen 0.2EU/DL (NORMAL) Urine Leukocyte Esterase Negative (NEGATIVE) Urinalysis Comment Microscopic not ind. History of Present Illness The 61-year-old otherwise well patient who developed a confusional state with difficulty with short-term memory at about 10 o'clock this morning. During this period family noted no difficulty with motor function arm leg lip facial droop or any lateral lysing symptoms. His speech was retained and he had a rather waxing and waning course with this letter resolved prior to arriving in the ER. He had had no symptoms for a few hours but began to have a strange sensation that he called an aura again in the emergency room at the time of physical exam. Although at no point was he confused Hospital Course Despite the low likelihood of this being any vascular event, family anxiety level was high and patient was brought in to rule out any CVA. Patient spent an uneventful night on the medical floor receiving neuro checks. MRI was benign and patient had no further symptoms. I believe this was an environmental exposure or adverse effect medication Problems: (1) Altered mental state Status: Acute Assessment & Plan: Patient remain on medical floor overnight was screened for neurological deficits. No events were seen. MRI the following morning was entirely benign. Patient is being discharged home with routine follow-up with primary care (2) Migraines Assessment & Plan: Another likely reason for acute confusional state patient is not having or at this time (3) Hypothyroidism Onset Date: ~ 06/2016 Assessment & Plan: Will recheck a TSH the free T4 (4) Chronic back pain Assessment & Plan: Will hold some of his medicines for the back pain as they are likely to cause altered mental state but some will have to be given for pain control Code Status Full Code Home Meds Reported Medications Cephalexin (Cephalexin) 500 Mg Capsule, 500 MG PO BID for 10 Days 07/17/16 Butalb/Acetaminophen/Caffeine (Fioricet 50-300-40 mg Capsule) 1 Each Capsule, 1 TAB PO PRN 07/02/16 Olopatadine HCl (Patanol) 50 Drop/5 Ml Drops, 2 DROP BOTH EYES PRN, ML 07/02/16 Fluticasone Propionate (Flonase Allergy Relief 50 mcg/actuation Nasal) 9.9 Ml [place].susp, 2 SPRAY EA NOSTRIL PRN 07/02/16 Acetaminophen (Tylenol Extra Strength) 500 Mg Tablet, 2 TAB PO TID Y for PAIN/ FEVER, TAB 07/02/16 Cyclobenzaprine HCl (Cyclobenzaprine HCl) 10 Mg Tablet, 10 MG PO TID Y for PRN ORDERS 07/02/16 Ranitidine HCl (Ranitidine HCl) 150 Mg Tablet, 150 MG PO HS 07/02/16 Loratadine (Claritin) 10 Mg Tablet, 10 MG PO DAILY 07/02/16 Pravastatin Sodium (Pravastatin Sodium) 20 Mg Tablet, 20 MG PO HS 07/02/16 Duloxetine HCl (Cymbalta) 30 Mg Capsule, 30 MG PO DAILY 07/02/16 Pregabalin (Lyrica) 100 Mg Capsule, 100 MG PO HS, CAP 07/02/16 Glucosam/MSM/Chondroit/Vit D3 (Sv Glucosamine Chondroitin Tab) 1 Each Tablet, 1 TAB PO DAILY 07/02/16 Psyllium Husk (Metamucil) 660 Gm Powder, 660 GM PO BID 07/02/16 [place]-3S/Dha/Epa/Fish Oil (Fish Oil EC 1,200 mg Softgel) 1 Each Capsule.dr, 1 TAB PO BID 07/02/16 Multivitamin (Multi-Day Vitamins) 1 Each Tablet, 1 TAB PO DAILY 07/02/16 Levothyroxine Sodium (Levothyroxine Sodium) 50 Mcg Tablet, 50 MCG PO ACB 07/02/16 Pantoprazole Sodium (Pantoprazole Sodium) 40 Mg Tablet.dr, 40 MG PO ACB 07/02/16 Celecoxib (Celebrex) 200 Mg Capsule, 200 MG PO DAILY 07/02/16 Face to Face Encounter I met with patient on the day of dismissal and discussed follow up appointments , medications, and safety plan. Discharge Disposition Good and stable Documentation Requirements Alt. Mental Status/Confusion Probably or Definitive Cause Likely medication or environmental exposure Check if condition above is: Acute Comments This currently resolved AUTUMN STAFFORD MD July 18, 2016 14:53
[2016-07-18] MEDS ORDERED: ASPI325T PO (15:00)
[2016-07-18] MEDS ORDERED: PRAV40TA3 PO (15:02)
--- NOTE | 2016-07-18 15:15 | NUR ---
Dismissal Instructions Patient received dismissal instructions. No questions stated. Patient currently waiting on spouse to come back to give him ride home.
--- NOTE | 2016-07-18 15:45 | NUR ---
Dismissed Patient dismissed to home at present time. Out of facility in wheelchair accompanied by staff and family. Personal belongings sent home with patient.
== END 2016-07-18 15:45 | disposition home or self-care (01) ==
LOC: ED 15:58 → EDHOLD 17:59 → MED 18:40
PROVIDERS: ADMIT Family Medicine; ATTEND Family Medicine
DX: R41.82 Altered mental status, unspecified (principal); G96.19 Other disorders of meninges, not elsewhere classified; G43.909 Migraine, unspecified, not intractable, without status migrainosus; E03.9 Hypothyroidism, unspecified; G89.29 Other chronic pain; M54.2 Cervicalgia; E78.00 Pure hypercholesterolemia, unspecified; K21.9 Gastro-esophageal reflux disease without esophagitis; J30.9 Allergic rhinitis, unspecified; Z79.1 Long term (current) use of non-steroidal anti-inflammatories (NSAID); Z79.899 Other long term (current) drug therapy
CPT/HCPCS: 36415; 70450; 70551; 71010; 80053; 81003; 82948; 84443; 84484; 85025; 85610; 85730; 93005; 96361; 96374; 99284; A9270; C9113; G0378; J7030; 36000; 99218

== ENCOUNTER → 2016-07-19 | Outpatient (CLI) | payer MEDICARE, OTHER ==
[~2016-07-19] MED LIST changes: +ASPI325T PO; +CEPH500C2 PO; +IOHEXOL 300 MG/ML 100ml INJECTION ONE; -METH2TAB; +NORMAL SALINE 100 ML ONE; +PRAV40TA3 PO; +SALINE FLUSH 10ml SYRINGE ONE
--- NOTE | 2016-07-19 10:34 | DI ---
Indication: ITS.REASON: C61 [address] ABD/PELVIS W/CONTRAST ONLY: Comparison: None Technique: Patient is scanned from above the diaphragm to below the pubic symphysis after 100 cc of Omni 300 intravenous contrast is utilized with dose reduction imaging technology and reformatted sagittal and coronal images. Findings: Heart size is within normal limits. Lung bases showed no acute findings. Liver, gallbladder, common duct are unremarkable. Spleen is unremarkable. Pancreas and both adrenals are unremarkable. Kidneys showed some probable small parapelvic cysts in the left kidney but no abnormal calcifications or masses are seen. Large and small bowel showed no significant acute inflammatory change or obstruction. Bladder contour is unremarkable. Patient showed no significant prostatic enlargement. Bone window imaging shows no marked amount of potential sclerotic lesions. A couple of very subtle areas identified are indeterminant. Bone scanning may be a consideration. Postoperative changes are present with hardware in place posteriorly stabilizing the mid and lower lumbar spine. Previous multilevel laminectomies present. No definitive sclerotic lesions consistent with bony metastatic disease identified. Perhaps bone scanning would be a consideration. Patient shows an electrode in place in the midthoracic region. Impression: 1. No significant acute findings appreciated. 2. No obvious bony metastatic disease appreciated bone scanning might be more sensitive. .
--- NOTE | 2016-07-19 13:09 | DI ---
Indication: ITS.REASON: C61 PROSTATE CA NM BONE SCAN, WHOLE BODY: Comparison: CT cervical and thoracic spine 04/03/2014 Technique: Patient was injected with approximately 26 mCi technetium 99 MDP and after the appropriate waiting time total body gamma camera images are provided in anterior and posterior image planes. Findings: Patient shows activity across the entire T10 vertebral body which could indicate a compression fracture. This area showed a slightly sclerotic appearance on the CT study which is somewhat indeterminant and might even be secondary to a hemangioma although I am uncertain as to its exact significance. Minimal activity is identified about T6 to the right of the midline. Mild degenerative changes seen about the shoulders, sternoclavicular joints and at the lumbar sacral junction. Impression: 1. Patient showed some activity across the entire T10 vertebral body which correlated to an area of subtle sclerotic change on the CT images which is nonspecific overall. The level of activity is not as intense as I would've thought four definitive metastatic disease however it does correlate with some increased sclerotic change within the vertebral body on the CT images. 2. Some degenerative changes at the lumbar sacral junction and about the sternal clavicular joints and shoulders and another subtle area of degenerative change at T6 to the right of the midline. Again findings would not be specific for bony metastatic disease. .
== END ==
LOC: IMA 08:44
PROVIDERS: ATTEND Urology
DX: C61 Malignant neoplasm of prostate (principal); R94.8 Abnormal results of function studies of other organs and systems
CPT/HCPCS: 36415; 74177; 78306; 82565; 84520; A9503; J7050; Q9967